=== PATIENT | male | born 1980 | race Caucasian/White ===

== ENCOUNTER 2022-07-18 06:28 | Emergency (ER) | payer MEDICAID, OTHER ==
[~2022-07-18] VITALS: Ht 182.9 cm; Wt 83.9 kg
[2022-07-18] MEDS ORDERED: IV NORMAL SALINE 1000 ML BAG IV ONE (06:45)
[2022-07-18] MEDS ORDERED: ONDANSETRON 4 MG/2 ML VIAL IV ONE (06:45)
[2022-07-18] MEDS ORDERED: ONDANSETRON 4 MG/2 ML VIAL ONE (06:48)
--- NOTE | 2022-07-18 07:02 | NUR ---
Patient A/O x 4. NAD noted. Fiance at bedside.
[2022-07-18 07:05] LABS: HEMATOCRIT 46.9 % (36.7-47.1); MEAN CORPUSCULAR HEMOGLOBIN 29.4 uug (23.8-33.4); MEAN CORPUSCULAR VOLUME 89.6 fL (73.0-96.2); PLATELET COUNT (AUTO) 336 K/uL (152-348)
[2022-07-18] MEDS ORDERED: FAMOTIDINE. 20 MG/2 ML VIAL IV ONE ×2 (07:13→07:15)
[2022-07-18 07:25] LABS: BILIRUBIN,DIRECT 0.2 mg/dL (0.0-0.2); BILIRUBIN,TOTAL 0.7 mg/dL (0.2-1.0); POTASSIUM 4.9 mmol/L (3.5-5.1); TOTAL PROTEIN, SERUM 7.6 g/dL (6.4-8.2)
[2022-07-18] MEDS ORDERED: KETOROLAC TROMETHAMINE 15 MG INJ IVP ONE (07:45)
[2022-07-18] MEDS ORDERED: KETOROLAC TROMETHAMINE 15 MG INJ ONE (07:47)
--- NOTE | 2022-07-18 07:52 | NUR ---
IV removed. Catheter intact and site benign. Pressure and 4x4 gauze applied to site. No bleeding noted.
[2022-07-18 08:03] VITALS: BP 118/76
--- NOTE | 2022-07-18 08:09 | NUR ---
Patient reported to the ER with complaints of nausea, vomiting, diarrhea, and foot pain due to recent trauma. Physician seen, labs and imaging cpmpleted, and medications given per order. Patient departed ambulatory.
== END 2022-07-18 07:40 | disposition home or self-care (01) ==
LOC: ER 06:28
DX: R11.2 Nausea with vomiting, unspecified (principal); S92.321A Displaced fracture of second metatarsal bone, right foot, initial encounter for closed fracture; W26.8XXA Contact with other sharp object(s), not elsewhere classified, initial encounter; Y92.89 Other specified places as the place of occurrence of the external cause; Y99.8 Other external cause status; S91.341A Puncture wound with foreign body, right foot, initial encounter; E29.1 Testicular hypofunction; Z79.890 Hormone replacement therapy; Y99.0 Civilian activity done for income or pay
CPT/HCPCS: 99284; 96374; 96375; 96361; 80076; 80048; 83690; 85025; 36415; 73630; J3490; J1885; J2405; J7040; A4663